=== PATIENT | female | born 1995 | race Caucasian/White ===

== ENCOUNTER 2024-04-11 12:32 | Outpatient (AMB) | payer OTHER, SELFPAY ==
--- NOTE | 2024-04-11 12:33 | MHC.OFFWIV ---
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 Started 2 weeks ago Patient Tobacco Use Status: Never used Tobacco Allergies doxycycline Adverse Reaction (Intermediate, Verified 04/11/24 12:38) Hives Do you need a note to return to daycare/school/sports/work: No PFSH Social History Patient Tobacco Use Status: Never used Tobacco Physical Exam Vital Signs: Last Vital Signs Temp 98.2 F 04/11/24 12:34 Pulse 80 04/11/24 12:34 BP 116/80 04/11/24 12:34 Pulse Ox 99 04/11/24 12:34 Oxygen Delivery Method Room Air 04/11/24 12:34 BMI result Body Mass Index 21.8 Const General: cooperative, healthy appearing, comfortable and no acute distress Orientation/consciousness: patient oriented x3 Limitations: no limitations HEENT Head: Yes normal to inspection Eyes General: appearance normal, both eyes and all related structures Resp Effort & Inspection: normal respiratory effort and able to speak in complete sentences Skin Other: A streaky, linear area with a 3cm maculopapular rash area with crusted lesions on LLE Neuro General: patient oriented x3 Assessment & Plan Assessment & Plan (1) Allergic dermatitis: Code(s): L23.9 - Allergic contact dermatitis, unspecified cause Plan: Sent clobetasol and hydroxyzine to pharmacy. Recommended follow up with PCP if no improvement in the next week Plan See above Medications: New hydroxyzine HCl 10 mg PO QID 7 tabs 0RF clobetasol 0.05% 1 appl topical BID 1 week 30 grams 0RF Coding Level of Care Code New Pt Level 3 (56907) Diagnoses Allergic dermatitis L23.9
[2024-04-11 12:34] VITALS: BP 116/80; PULSE 80; TEMP 36.8; O2SAT 99; BMI 21.8
== END 2024-04-11 12:55 | disposition home or self-care (01) ==
PROVIDERS: Visit Provider Physician Assistant
DX: L23.9 Allergic contact dermatitis, unspecified cause (principal)
CPT/HCPCS: 99203

== ENCOUNTER 2024-05-15 08:35 | Outpatient (AMB) | payer OTHER, SELFPAY ==
--- NOTE | 2024-05-15 08:52 | MHC.OFFWIV ---
Intake Vital Signs 05/15/24 08:54 Height 5 ft 3 in Weight 124 lb BMI 22.0 BP 110/74 Blood Pressure Location Rt brachial Position Sitting Pulse 98 Pulse Source Pulse Oximeter Pulse Oximetry (%) 98 Oxygen Delivery Method Room Air Intake Visit Reasons: EP ? UTI Intake Note: Patient here for some blood in urine that started yesterday and then started with low back discomfort, burning when urinating and abdominal pain. Patient Tobacco Use Status: Never used Tobacco Allergies doxycycline Adverse Reaction (Intermediate, Verified 05/15/24 08:58) Hives Do you need a note to return to daycare/school/sports/work: No HPI HPI Comments History of Present Illness Details Patient is a 29-year-old female complaining of 2 days of blood in her urine, low back pain and some burning with urination. She denies being on her menstrual cycle, fevers, history of kidney stones or increased frequency of urination. [facility] Social History Patient Tobacco Use Status: Never used Tobacco Review of Systems Const All systems reviewed & are unremarkable except as noted in HPI and below Physical Exam Vital Signs: Last Vital Signs Pulse 98 05/15/24 08:54 BP 110/74 05/15/24 08:54 Pulse Ox 98 05/15/24 08:54 Oxygen Delivery Method Room Air 05/15/24 08:54 BMI result Body Mass Index 22.0 Const General: cooperative, healthy appearing and comfortable Orientation/consciousness: patient oriented x3 HEENT Head: Yes normal to inspection and Yes normocephalic General nose exam: Normal external nose present Face and sinus: Yes normal facial exam Eyes General: appearance normal, both eyes and all related structures Resp Effort & Inspection: normal respiratory effort and able to speak in complete sentences General: Yes CVA tenderness on the left Back/Spine/Pelvis Back: CVA tenderness Neuro General: patient oriented x3 Results AMB Urinalysis, Automated UA Leukoctes 0 Rayshawn/uL Last Edit by ANKUR Flores on 05/15/24 09:09 UA Nitrite Negative Last Edit by ANKUR Flores on 05/15/24 09:09 UA Urobilinogen 0.2 mg/dL Last Edit by ANKUR Flroes on 05/15/24 09:09 UA Protein 0 mg/dL Last Edit by ANKUR Flores on 05/15/24 09:09 UA pH 6.0 Last Edit by [facility] on 05/15/24 09:09 UA Blood 80 Kevin/uL Last Edit by ANKUR Flores on 05/15/24 09:09 UA Specific [place] 1.010 Last Edit by [facility] on 05/15/24 09:09 UA Ketone Negative Last Edit by [facility] on 05/15/24 09:09 UA Bilirubin 0 mg/dL Last Edit by [facility] on 05/15/24 09:09 UA Glucose 0 mg/dL Last Edit [facility] on 05/15/24 09:09 Results Reviewed Results Reviewed: Laboratory Last Values Urine pH (Auto) 6.0 05/15/24 09:08 Specific [place] (Auto) 1.010 05/15/24 09:08 Urine Protein (Auto) 0 mg/dL 05/15/24 09:08 Glucose (UA)(Auto) 0 mg/dL 05/15/24 09:08 Urine Ketones (Auto) Negative 05/15/24 09:08 Urine Blood (Auto) 80 Kevin/uL 05/15/24 09:08 Urine Nitrite (Auto) Negative 05/15/24 09:08 Urine Bilirubin (Auto) 0 mg/dL 05/15/24 09:08 Urine Urobilinogen (Auto) 0.2 mg/dL 05/15/24 09:08 Leukocyte Esterase (Auto) 0 Rayshawn/uL 05/15/24 09:08 Assessment & Plan Assessment & Plan (1) Hematuria: Code(s): R31.9 - Hematuria, unspecified Qualifiers: Hematuria type: other microscopic Qualified Code(s): R31.29 - Other microscopic hematuria Plan: Vital signs are stable, with her hematuria and low back pain and positive CVA tenderness on the left side, this is likely a kidney stone. Sent to emergency department for further workup called [facility] ED with expect. (2) Low back pain: Code(s): M54.50 - Low back pain, unspecified Qualifiers: Chronicity: acute Back pain laterality: bilateral Sciatica presence: without sciatica Qualified Code(s): M54.50 - Low back pain, unspecified Plan: See above Plan See above Orders: Orders AMB Urinalysis Automated Today Z13.9 - Encounter for screening, unspecified Coding Level of Care Code New Pt Level 5 (87667) Diagnoses Other microscopic hematuria R31.29 Hematuria type: other microscopic Acute bilateral low back pain without sciatica M54.50 Chronicity: acute Back pain laterality: bilateral Sciatica presence: without sciatica
[2024-05-15 08:54] VITALS: BP 110/74; PULSE 98; O2SAT 98; BMI 22.0
== END 2024-05-15 09:28 | disposition home or self-care (01) ==
PROVIDERS: Visit Provider Physician Assistant
DX: R31.29 Other microscopic hematuria (principal); M54.50 Low back pain, unspecified

== ENCOUNTER → 2024-05-15 08:35 | Outpatient (BNVA) | payer OTHER, SELFPAY | DX: R31.29 Other microscopic hematuria (principal); M54.50 Low back pain, unspecified | CPT/HCPCS: 81003 ==

== ENCOUNTER 2024-05-15 09:49 | Emergency (ER) | payer OTHER, SELFPAY ==
--- NOTE | ~2024-05-15 | CT_ITS ---
EXAMINATION: CT ABDOMEN AND PELVIS WITHOUT CONTRAST CLINICAL INFORMATION: Bilateral flank pain. COMPARISON: None available. TECHNIQUE: Multidetector volumetric imaging was performed from the superior aspect of the liver through the pubic symphysis. Sagittal and coronal reformatted images were obtained on the technologist's workstation. This CT examination was performed using dose optimization techniques as appropriate, variously including the following: *Automated exposure control *Adjustment of mA and/or kV according to patient size (this includes techniques or standardized protocols for targeted exams where dose is matched to indication/reason for exam; i.e. extremities or head) *Use of iterative reconstruction technique DLP: 362 mGy-cm FINDINGS: LUNG BASES: The visualized lung bases are unremarkable. LIVER, GALLBLADDER, AND BILIARY TREE: The noncontrast liver is normal in size, shape, and attenuation. No biliary ductal dilatation is present. The gallbladder is unremarkable with no evidence of radiopaque gallstones, gallbladder wall thickening, or obvious pericholecystic inflammatory changes. PANCREAS: Unremarkable. SPLEEN: Unremarkable. ADRENAL GLANDS: Unremarkable. KIDNEYS AND URETERS: The kidneys are symmetric in size. No hydronephrosis, hydroureter, or calculi seen. No perinephric stranding. BLADDER: Unremarkable. GASTROINTESTINAL TRACT: Marked fecal retention in the colon. No small bowel obstruction. ABDOMINAL WALL: No significant hernia is appreciated. LYMPH NODES: No bulky lymphadenopathy. VASCULAR: Normal caliber abdominal aorta. PELVIC VISCERA: Unremarkable. OSSEOUS STRUCTURES: No destructive bone lesions. CT/CT abdomen pelvis wo IV con IMPRESSION: Constipation. Electronically signed by: David Bernardo MD 05/15/2024 04:16 PM EDT
[2024-05-15 10:05] VITALS: BP 137/75; PULSE 94; RESP 16; TEMP 36.8; O2SAT 99; BMI 22.9
--- NOTE | 2024-05-15 12:59 | ED.FEMALEGU ---
HPI - Female Genitourinary General Chief complaint: Urogenital-Female Stated complaint: infection sent from urgent care Time Seen by Provider: 05/15/24 12:55 Source: patient Mode of arrival: ambulatory Limitations: no limitations History of Present Illness ED Provider: TARAN CHAND PA-C HPI Narrative: 29 year old female with no significant pmhx presents to the ED today from urgent care for evaluation of hematuria, lower abdominal pain, and bilateral flank pain x3 days. Pain is currently 4-5/10. States she thought she had a UTI. Purchased AZO yesterday, took one dose of this without relief. Was seen at urgent care today and was noted to have blood in her urine without evidence of infection. She was advised to come to the ED for further evaluation ?renal stones. Denies fever, chills, nausea, vomiting, dysuria, increased urinary frequency/ urgency, vaginal discharge. LMP 2 weeks ago. Denies chance of . Admits to drinking large quantities of caffeine/soda. No history of renal stones. Related Data Previous Rx's ?Medication ?Instructions ?Recorded clobetasol 0.05 % topical ointment 1 appl topical BID 1 week #30 grams 04/11/24 hydroxyzine HCl 10 mg tablet 10 mg PO QID #7 tabs 04/11/24 cefuroxime axetil 250 mg tablet 250 mg PO BID 7 days #14 tabs 05/15/24 docusate sodium 100 mg capsule 100 mg PO DAILY #10 caps 05/15/24 (Colace) fluconazole 150 mg tablet 150 mg PO ONCE #1 tab 05/15/24 phenazopyridine 200 mg tablet 200 mg PO TID 6 doses #6 tabs 05/15/24 (Pyridium) polyethylene glycol 3350 17 17 g PO DAILY 4 days #68 grams 05/15/24 gram/dose oral powder (Miralax) Allergies Allergy/AdvReac Type Severity Reaction Status Date / Time doxycycline AdvReac Intermediate Hives Verified 05/15/24 10:08 Review of Systems Review of Systems: Constitutional: No fever, chills, fatigue, night sweats, weight changes ENT/Mouth: No ear pain, hearing loss, nasal congestion, sinus pain, rhinorrhea, sore throat Eyes: No eye pain, swelling, redness, vision changes, discharge Cardio: No chest pain, palpitations, IBARRA, orthopnea, peripheral edema Pulm: No SOB, cough, sputum, wheezing, dyspnea, hemoptysis GI: No nausea, vomiting, hematemesis, diarrhea, constipation, hematochezia, melena, +lower abd pain : No irregular bleeding, dysuria, frequency, urgency, hesitancy, urinary flow changes, urinary incontinence or retention, +hematuria, +bilateral flank pain MSK: No back pain, neck pain, joint pain, myalgias Skin: No lesions, rashes Neuro: No weakness, numbness, paresthesias, LOC, dizziness, headache Psych: No anxiety/panic, depression, SI/HI, AH/VH All other systems reviewed and are negative. [facility] Past Medical History Attestation statement: The following information was validated with the patient. Source: old records reviewed and nursing notes reviewed Social History Social History Patient Tobacco Use Status: Never used Tobacco Advance Directives: No Advance Directives Information Provided: No Physical Exam Vital Signs: Vital Signs: Last Vital Signs Temp 98.3 F 05/15/24 10:05 Pulse 94 05/15/24 10:05 Resp 16 05/15/24 10:05 BP 137/75 05/15/24 10:05 Pulse Ox 99 05/15/24 10:05 O2 Del Method Room Air 05/15/24 10:05 BMI result Body Mass Index 22.9 Vital signs stable, afebrile General: Well appearing, in no acute distress. Skin: Warm, dry, intact. No rashes or lesions. Head: Normocephalic, atraumatic. Neck: Supple without LAD Cardiac: Chest wall symmetric. RRR. Lungs: Normal respiratory effort without accessory muscle use. CTA bilaterally. Abdomen: Soft, non-tender, non-distended. No rebound tenderness or guarding. Positive BS x4. No CVAT b/l. Back: No midline spinous or paraspinal tenderness. No step off deformity. Ext: Upper and lower extremities atraumatic, without tenderness, deformity, swelling or erythema. Full ROM throughout. Neuro: AOx3. Normal speech. Ambulating with steady gait. Psych: Appropriate mood and affect. Responds appropriately to questions. Course Course Course Narrative: 1530 -- CBC without leukocytosis or left shift. No anemia. H&H stable. Chemistry showing hypokalemia to 3 > repletion ordered. No other acute electrolyte abnormality requiring intervention. No LATISHA. Beta quant undetectable. Urine positive for blood and infection. Urine negative. > on re-evaluation, patient reports improvement in discomfort with Toradol. > CT scan pending at this time 1743 -- CT abdomen/pelvis does not demonstrate evidence of renal or ureteral calculi. It does show moderate stool burden/fecal retention. Informed patient of results. She tells me that she has not had a bowel movement in 2 days however this is baseline for her. She is not on a bowel regimen at home. > given urinary tract infection, will send Ceftin to pharmacy for treatment. Patient states that she has a history of yeast infections secondary to antibiotics. Fluconazole sent prophylactically. > will also send MiraLax and Colace to pharmacy for constipation. Informed patient to return to the ED if she does not pass a bowel movement within the next few days. she verbalizes understanding. > Patient has remained stable throughout ED visit today. Discussed worrisome signs and symptoms and when to return to the ED. All questions answered at this time. Patient is agreeable with disposition and stable for discharge. Medications Administered Discontinued Medications Generic Name Dose Route Start Last Admin Trade Name Freq PRN Reason Stop Dose Admin Sodium Chloride 1,000 mls @ 999 mls/hr 05/15/24 13:30 05/15/24 15:08 Ns IV 05/15/24 14:30 Infused .Q1H1M IWONA Infusion Potassium Chloride 10 meq in 100 mls @ 100 mls/hr 05/15/24 15:30 05/15/24 17:34 Potassium Chloride/H20 IV 05/15/24 17:29 100 mls/hr Q1H IWONA Administration Sodium Chloride 500 mls @ 500 mls/hr 05/15/24 16:05 05/15/24 16:37 Ns IV 05/15/24 17:04 Infused .Q1H ONE Infusion Sodium Chloride 500 mls @ 500 mls/hr 05/15/24 16:41 05/15/24 16:45 Ns IV 05/15/24 17:40 500 mls/hr .Q1H ONE Administration Ketorolac Tromethamine 15 mg 05/15/24 13:24 05/15/24 14:20 Ketorolac Tromethamine 15 Mg/Ml Vial IVPUSH 05/15/24 13:25 15 mg ONCE ONE Administration Potassium Chloride 60 meq 05/15/24 15:30 05/15/24 16:21 Potassium Chloride Packet 20 Meq Packet PO 05/15/24 15:31 60 meq ONCE ONE Administration Medical Decision Making Medical Decision Making [facility] Narrative: 29 year old female with no significant pmhx presents to the ED today from urgent care for evaluation of hematuria, lower abdominal pain, and bilateral flank pain x3 days. Vital signs stable, afebrile. She is nontoxic-appearing and in no acute distress. Abdomen is soft, nondistended, nontender to palpation, no rebound tenderness or guarding. Normoactive bowel sounds x4. No CVAT bilaterally. Differential diagnoses: Urinary tract infection, hydronephrosis, nephrolithiasis, renal colic, IUP Abdominal exam without peritoneal signs. No evidence of acute abdomen at this time. Well appearing. Low suspicion for acute hepatobiliary disease (including acute cholecystitis), acute infectious processes (pneumonia, hepatitis, pyelonephritis, PID, TOA), vascular catastrophe, bowel obstruction or viscus perforation, ovarian cyst/ rupture/ torsion, ectopic . Presentation not consistent with other acute, emergent causes of abdominal pain at this time. Plan: labs, UA, u preg, IVF, pain control +/- CT A/P Differential Diagnosis Differential Diagnoses: The differential diagnosis associated with the presentation includes As above Admission/Observation Not indicated Lab Data [facility] Lab Attestation statement: I reviewed the patient's lab results. As above 05/15/24 14:03 05/15/24 14:03 Labs: Lab Results 05/15/24 Range/Units 14:03 WBC 7.1 (4.8-10.8) X10*3/uL RBC 4.25 (4.20-5.50) X10*6/uL Hgb 12.3 (12.0-16.0) g/dl Hct 36.8 L (37.0-47.0) % MCV 86.6 (80.0-98.0) fL MCH 28.9 (27.0-33.0) pg MCHC 33.4 (31.0-35.0) g/dl RDW 13.0 (11.0-16.0) % Plt Count 239 (160-400) X10*3/uL MPV 9.5 (9.4-12.3) fL Immature Gran % (Auto) 0.3 (0.0-0.4) % Neut % (Auto) 64.3 (45-73) % Lymph % (Auto) 28.2 (20-40) % Benzie % (Auto) 5.8 (2-11) % Eos % (Auto) 0.8 (0-4) % Baso % (Auto) 0.6 (0-2) % Lymph # (Auto) 2.0 (1.2-4.9) X10*3/uL Benzie # (Auto) 0.4 (0.1-1.2) X10*3/uL Eos # (Auto) 0.1 (0.0-0.4) X10*3/uL Baso # (Auto) 0.0 (0.0-0.2) X10*3/uL Abs Immat Gran (auto) 0.02 (0.00-0.03) X10*3/uL Absolute Neuts (auto) 4.6 (2.0-8.3) x10*3/uL Absolute Nucleated RBC 0.000 (0.0-0.012) X10*3/uL Nucleated RBC % (auto) 0.0 (0.0-0.2) /100WBC Sodium 144 (135-145) mmol/L Potassium 3.0 L (3.3-5.1) mmol/L Chloride 113 H (96-108) mmol/L Carbon Dioxide 24 (22-29) mmol/L Anion Gap 10 L (12-20) BUN 8 L (9-16) mg/dL Creatinine 0.64 (0.5-1.4) mg/dL Estim Creat Clear Calc 97.0 Estimated GFR > 60 Random Glucose 80 (60-115) mg/dL Calcium 7.7 L (8.4-10.2) mg/dL Magnesium 1.7 (1.6-2.6) mg/dL Total Bilirubin 0.4 (0.0-1.0) mg/dL AST 15 (5-31) U/L ALT 13 (0-31) U/L Alkaline Phosphatase 29 L (39-117) U/L Total Protein 6.0 L (6.5-8.0) g/dL Albumin 3.5 (3.5-5.0) g/dL Lipase 15 (8-78) U/L Beta HCG, Quant < 2 mIU/mL Urine Color Yellow Urine Appearance Clear Urine pH 6.5 (5.0-9.0) Ur Specific [place] 1.010 (1.005-1.025) Urine Protein Negative (Neg-Trace) mg/dL Urine Glucose (UA) Negative (Negative) mg/dL Urine Ketones Negative (Negative) mg/dL Urine Blood Small (1+) H (Negative) Urine Nitrite Positive H (Negative) Ur Leukocyte Esterase Large (3+) H (Negative) Urine RBC 11-20 H (0-2) /HPF Urine WBC >50 H (0-5) /HPF Ur Squamous Epith Cells 0-2 (0-2) /HPF Urine Bacteria 4+ (None Seen) Hyaline Casts 0-2 (0-2) /LPF Urine Test NEGATIVE (NEGATIVE) Chlam trachomat DNA PCR NOT DETECTED (Not Detect.) N.gonorrhoeae DNA (PCR) NOT DETECTED (Not Detect.) Independent Interpretation I performed an independent interpretation of an: CT Scan Interpretation: CT scan abdomen/pelvis without renal or ureteral calculi, agree with radiologist's interpretation. Radiology Impression Discussion of test interpretation with radiology: I have reviewed the radiologist's reading. Radiologist Impression: EXAMINATION: CT ABDOMEN AND PELVIS WITHOUT CONTRAST CLINICAL INFORMATION: Bilateral flank pain. COMPARISON: None available. TECHNIQUE: Multidetector volumetric imaging was performed from the superior aspect of the liver through the pubic symphysis. Sagittal and coronal reformatted images were obtained on the technologist's workstation. This CT examination was performed using dose optimization techniques as appropriate, variously including the following: *Automated exposure control *Adjustment of mA and/or kV according to patient size (this includes techniques or standardized protocols for targeted exams where dose is matched to indication/reason for exam; i.e. extremities or head) *Use of iterative reconstruction technique DLP: 362 mGy-cm FINDINGS: LUNG BASES: The visualized lung bases are unremarkable. LIVER, GALLBLADDER, AND BILIARY TREE: The noncontrast liver is normal in size, shape, and attenuation. No biliary ductal dilatation is present. The gallbladder is unremarkable with no evidence of radiopaque gallstones, gallbladder wall thickening, or obvious pericholecystic inflammatory changes. PANCREAS: Unremarkable. SPLEEN: Unremarkable. ADRENAL GLANDS: Unremarkable. KIDNEYS AND URETERS: The kidneys are symmetric in size. No hydronephrosis, hydroureter, or calculi seen. No perinephric stranding. BLADDER: Unremarkable. GASTROINTESTINAL TRACT: Marked fecal retention in the colon. No small bowel obstruction. ABDOMINAL WALL: No significant hernia is appreciated. LYMPH NODES: No bulky lymphadenopathy. VASCULAR: Normal caliber abdominal aorta. PELVIC VISCERA: Unremarkable. OSSEOUS STRUCTURES: No destructive bone lesions. CT/CT abdomen pelvis wo IV con IMPRESSION: Constipation. Electronically signed by: David Bernardo MD 05/15/2024 04:16 PM EDT RP Independent Historian Clinical information obtained from an independent historian. History obtained from or confirmed by: Spouse () Prescription Management I considered prescription management with: Pain Medication (Pyridium), Antibiotic (Ceftin) and Other (Fluconazole, MiraLax, Colace) Social Determinants Patient?s care significantly limited by Social Determinants of Health including: Other Social Determinant of Health Critical Care Time Critical Care Time Critical Care Time: No Discharge Plan Discharge Clinical Impression: Urinary tract infection, Constipation, Acute hypokalemia, Hypocalcemia Patient Disposition: Home, Self-Care Instructions: Constipation (ED), Urinary Tract Infection in Women (ED), High Fiber Diet (ED), Hypokalemia (ED) Additional Instructions: You were potassium was noted to be low today. This was repleted in the ED. As discussed, please follow up with your primary care provider in 1-2 weeks to have these levels rechecked. The CT scan of your abdomen/pelvis did not reveal any kidney stones. It does show moderate amount of constipation consistent with you not having a bowel movement in 2 days. MiraLax is a laxative that has been sent to your pharmacy to help move your bowels. Colace is a stool softener that has been sent to your pharmacy to help soften your stools. Your urine today was positive for infection. Ceftin is an antibiotic that has been sent to your pharmacy. Take this as prescribed and do not miss any doses. You must complete the entire course of antibiotics. If you do not, there is a risk of the infection coming back or worsening. Pyridium is an analgesic that can relieve the pain, burning, and discomfort caused by infection or irritation of the urinary tract. It is not an antibiotic and will not cure the infection itself. This has been sent to your pharmacy. Take this as needed for discomfort. Pyridium can cause your urine to turn a reddish orange color.? If you develop a fever or new/ worsening symptoms call 911 or come back to the ER for further evaluation. Prescriptions: New cefuroxime axetil 250 mg tablet 250 mg PO BID 7 Days Qty: 14 0RF phenazopyridine [Pyridium] 200 mg tablet 200 mg PO TID Qty: 6 0RF fluconazole 150 mg tablet 150 mg PO ONCE Qty: 1 0RF docusate sodium [Colace] 100 mg capsule 100 mg PO DAILY Qty: 10 0RF polyethylene glycol 3350 [Miralax] 17 gram/dose powder 17 g PO DAILY 4 Days Qty: 68 0RF No Action clobetasol 0.05 % ointment 1 appl topical BID 7 Days Qty: 30 0RF hydroxyzine HCl 10 mg tablet 10 mg PO QID Qty: 7 0RF Referrals: [facility] [place] Primary CareMaggie [Provider Group] [facility] [place] Primary CareKaila [Provider Group] Print Language: [place]
[2024-05-15] MEDS: 0.9 % Sodium Chloride 1,000 ML 999 ML IV (14:04)
[2024-05-15 14:10] LABS: MANUAL DIFF FLAG NO
[2024-05-15 14:12] LABS: Basophils Percent Auto 0.6 % (0-2); Eosinophils Absolute Auto 0.1 X10*3/uL (0.0-0.4); Eosinophils Percent Auto 0.8 % (0-4); Hematocrit 36.8 % (37.0-47.0); Hemoglobin 12.3 g/dl (12.0-16.0); Imm Gran Abs Auto 0.02 X10*3/uL (0.00-0.03); Imm Gran Pct Auto 0.3 % (0.0-0.4); Lymphocytes Percent Auto 28.2 % (20-40); Mean Corpuscular HGB Conc 33.4 g/dl (31.0-35.0); Mean Corpuscular Hemoglobin 28.9 pg (27.0-33.0); Mean Corpuscular Volume 86.6 fL (80.0-98.0); Mean Platelet Volume 9.5 fL (9.4-12.3); Monocytes Absolute Auto 0.4 X10*3/uL (0.1-1.2); Monocytes Percent Auto 5.8 % (2-11); Neutrophils Absolute Auto 4.6 x10*3/uL (2.0-8.3); Neutrophils Percent Auto 64.3 % (45-73); Platelet Count 239 X10*3/uL (160-400); Red Blood Count 4.25 X10*6/uL (4.20-5.50); White Blood Count 7.1 X10*3/uL (4.8-10.8)
[2024-05-15 14:13] LABS: Appearance Urine Clear; Color Urine Yellow; Glucose Urine UA Negative (Negative); Leukocyte Esterase Urine Large (3+) (Negative); Nitrite Urine Positive (Negative); PH 6.5 (5.0-9.0); UMIC TRIGGER UACC YES; Urine Blood Small (1+) (Negative); Urine Ketones Negative (Negative); Urine Protein Negative (Neg-Trace)
[2024-05-15 14:14] LABS: UPreg QC Valid YES; Urine Pregnancy NEGATIVE (NEGATIVE)
[2024-05-15 14:16] LABS: Bacteria Urine 4+ (None Seen); Hyaline Casts Urine 0-2 /LPF (0-2); Squamous Epithelial Cell Urine 0-2 /HPF (0-2); UACC Culture Trigger YES; WBC Urine >50 /HPF (0-5)
[2024-05-15] MEDS: Ketorolac Tromethamine 15 MG/ML VIAL IVPUSH (14:20)
[2024-05-15 14:29] LABS: Alanine Aminotransferase 13 U/L (0-31); Albumin Level 3.5 g/dL (3.5-5.0); Alkaline Phosphatase 29 U/L (39-117); Anion Gap 10 (12-20); Aspartate Amino Transferase 15 U/L (5-31); Bilirubin Total 0.4 mg/dL (0.0-1.0); Blood Urea Nitrogen 8 mg/dL (9-16); Calcium 7.7 mg/dL (8.4-10.2); Carbon Dioxide 24 mmol/L (22-29); Chloride 113 mmol/L (96-108); Estimated Glomerular Filt Rate > 60; Glucose Random 80 mg/dL (60-115); Lipase 15 U/L (8-78); Magnesium 1.7 mg/dL (1.6-2.6); Sodium 144 mmol/L (135-145)
[2024-05-15 14:37] LABS: HCG Quantitative < 2 mIU/mL
[2024-05-15 16:09] LABS: CT PCR NOT DETECTED (Not Detect.); NG PCR NOT DETECTED (Not Detect.)
[2024-05-15] MEDS: Potassium Chloride/H20 10 MEQ/100 ML PIGGYBACK 100 MEQ IV ×2 (16:18→17:34)
[2024-05-15] MEDS: 0.9 % Sodium Chloride 500 ML IV ×2 (16:18→16:45)
[2024-05-15] MEDS: Potassium Chloride Packet 20 MEQ PACKET 60 MEQ PO (16:21)
[2024-05-15 18:51] VITALS: BP 137/75; PULSE 94; RESP 16; TEMP 36.8; O2SAT 99
== END 2024-05-15 18:52 | disposition home or self-care (01) ==
PROVIDERS: Physician Assistant Medical; Emergency Provider Emergency Medicine Emergency Medical Services
DX: N39.0 Urinary tract infection, site not specified (principal); K59.00 Constipation, unspecified; E87.6 Hypokalemia; E83.51 Hypocalcemia; R10.30 Lower abdominal pain, unspecified; R31.9 Hematuria, unspecified
CPT/HCPCS: 36415; 74176; 80053; 81001; 81025; 83690; 83735; 84702; 85025; 87086; 87088; 87186; 87491; 87591; 96361; 96365; 96366; 96375; 99284; J1885; J3480